=== PATIENT | male | born 1945 | race Caucasian/White ===

== ENCOUNTER → 2017-10-28 | Outpatient (CLI) | payer OTHER ==
--- NOTE | 2017-10-28 10:34 | RADRPT ---
EXAM DATE/TIME: 10/28/2017 00:00 [place] COMPARISON: No previous studies available for comparison. INDICATIONS : Dysphagia with liquids and solids for at least 6 to 8 months FLUORO TIME: 1.4 minutes IMAGE COUNT: 0 CONTRAST: Dose as prescribed by speech pathologist. MEDICAL HISTORY : None. SURGICAL HISTORY : None. ENCOUNTER: Initial ACUITY: 7 - 11 months PAIN SCORE: 0/10 LOCATION: Bilateral esophagus FINDINGS: A modified barium swallow was performed with speech pathology. Patient was given a variety of liquids to swallow. For a full detailed report, see report by the speech pathologist. CONCLUSION: No episodes of aspiration observed. Brandon Keenan MD on October 28, 2017 at 10:32 Board Certified Radiologist. This report was verified electronically.
== END ==
LOC: HRAD 09:53
PROVIDERS: ATTEND Specialist
DX: R13.10 Dysphagia, unspecified (principal)
CPT/HCPCS: 74230; 92611; G8996; G8997; G8998

== ENCOUNTER 2018-05-27 09:28 | Inpatient (IN) ==
[2018-05-27] MEDS ORDERED: Sodium Chlor 0.9% Inj 500 ML IV.CONT ONE (10:30)
[2018-05-27] MEDS ORDERED: Chlorhexidine 4% Topical 120 APPLIC/120 ML Bottle TOPICAL SCH (10:30)
[2018-05-27] MEDS ORDERED: Metoprolol Tartrate 25 MG Tablet PO ONE (10:30)
[2018-05-27] MEDS ORDERED: Vancomycin Inj 1,000 MG in Sodium Chlor 0.9% Inj 250 ML IV.SIG SCH (11:00)
[2018-05-27] MEDS ORDERED: ceFAZolin 2 GM Premix Inj 2 GM/50 ML PIGGYBACK IV.SIG SCH (11:00)
[2018-05-27] MEDS ORDERED: TRANEXAMIC ACID IV.SIG SCH (11:00)
[2018-05-27] MEDS ORDERED: SODIUM CHLOR 0.9% IV.SIG SCH (11:00)
[2018-05-27] MEDS ORDERED: Sodium Chlor 0.9% Inj 60 ML, Bupivacaine Liposo PF 1.3% Inj 20 ML, Bupivacaine/Epi PF 0... P-ARTICULR SCH ×3 (11:00)
[2018-05-27] MEDS ORDERED: Temazepam 15 MG Capsule PO PRN (16:45)
[2018-05-27] MEDS ORDERED: Bisacodyl 10 MG Supp RECTAL PRN (16:45)
[2018-05-27] MEDS ORDERED: Post-op Orders (for Pharmacy) OTHER STA (16:45)
[2018-05-27] MEDS ORDERED: oxyCODONE/Acetaminophen 10/325 Tablet PO PRN (16:45)
--- NOTE | 2018-05-27 16:51 | P.OP ---
- Preoperative Diagnosis (1) Osteoarthritis of right hip - Postoperative Diagnosis (1) Osteoarthritis of right hip Date of procedure: 05/27/18 Procedure: Right total hip replacement, direct anterior exposure Anesthesia: GETA Surgeon: Maikel Gomez MD [employer] Teacher: Rhea Barnes PA-C Operation and Findings: EBL: 600 cc INDICATION: This patient is a 73-year-old male with severe bilateral hip pain related to extensive arthritis of both hips. The right is worse than the left. He has had extensive conservative care documented in the attached records. He has failed conservative management and now presents for surgical treatment. NOTE: Rhea Barnes PA-C was present for the entire surgical procedure as my first front ventilator. In my medical opinion her skill and care was necessary for the proper management of this patient. COMPONENTS: COMPANY: [employer] CUP: [place], 60 mm, 100 series STEM: [place], size 14, high offset, hydroxyapatite-coated HEAD: Metal, 36 mm, +5, 12/14 taper LINER: Altrex, 36 mm, neutral PROCEDURE: This patient was brought to the operating room and anesthetized in the supine position. The patient was positioned on the Everest table with the operative leg extended and the contralateral leg held position. The hip and leg was scrubbed with alcohol followed by Hibiclens followed by ChloraPrep and draped sterilely in the clean air suite. Preoperative fluoroscopic images were utilized. A templating x-ray was obtained and printed to be used during the case. A timeout was done and antibiotics were given within a routine time window. A 4 inch incision was made starting 2 cm distal and 2 cm lateral to the anterior superior iliac spine. The tensor fascia eber fascia was identified and opened longitudinally in line with the incision. Deep retraction allowed good visualization in the interval between the tensor fascia eber and the rectus and this was opened further. The posterior fascia was opened. Crossing vessels were coagulated appropriately. The anterior aspect of the hip capsule was identified. Retractors were placed above and below the capsule. The capsule was opened longitudinally. Stay sutures were utilized creating flaps for the anterior capsule. The femoral neck was cut at the right location and completed with an oscillating saw. The head and neck was removed and taken to the back table. The leg was externally rotated 60 degrees and traction placed on the extremity. The labrum was excised. A portion of the capsule was excised. Visibility was excellent. Retractors were positioned. Starting 6 mm from the final size reamer, we began reaming up to 1 mm from the anticipated size. This was visualized under fluoroscopy. A trial cup was positioned. This also was visualized under fluoroscopy and minor adjustments were made. The final preparation with a 60 reamer was utilized. The final cup was positioned in approximately 40 degrees of abduction and 20 degrees of forward flexion. This is visualized under fluoroscopy and was seated into the final position. Position was very satisfactory. A single hole eliminator was positioned followed by the plastic liner. The final solution was excellent. Traction was let off. The leg was brought into neutral rotation. A lifting took was positioned underneath the greater trochanter and proximal femur. The leg was maximally externally rotated and the foot drop to the floor across midline. Retractors were positioned. A box osteotome was used to gain entrance into the top of the femur. The canal was probed with a finder to ensure that we are within the canal. Successive broaching up to the final stem size was accomplished. Trial reduction showed excellent balancing. Adjustments were made. The wound was irrigated copiously and the canal irrigated. The final stem was inserted in proper orientation. Trial again was trialed and the final head side was impacted. The hip was reduced and with 60 degrees of external rotation the leg to be dropped to the floor without evidence of anterior subluxation. Intraoperative x-rays were obtained. Local anesthesia was utilized for a field block including posterior capsule, inferior capsule, cephalad capsule, region of the greater trochanter, tensor fascia eber and subcutaneous tissue. The anterior capsule was repaired with interrupted #2 Tycron sutures. The fascia was run with 0 PDS on a loop. Subcutaneous tissue was approximated 2-0 Vicryl suture and skin with running intradermal 3-0 Vicryl followed by benzoin and Steri-Strips. A sterile dressing was applied. The patient was awakened and taken to the recovery room in satisfactory condition FINDINGS: There was satisfactory fixation. Bone quality was excellent. This leg was short by several millimeters. Leg length was equalized. There was no complication appreciated.
--- NOTE | 2018-05-27 16:52 | XR ---
EXAM DATE: 05/27/2018 4:43 PM EST AGE/SEX: 73 years / Male INDICATIONS: Right anterior hip replacement. CLINICAL DATA: This is the patient's initial encounter. Patient reports that signs and symptoms have been present for 1 day and indicates a pain score of Nonresponsive. MEDICAL/SURGICAL HISTORY: Non-responsive. Non-responsive. COMPARISON: No prior exams available for comparison. FINDINGS: Right total hip arthroplasty present. Hardware is intact. Alignment is anatomic. CONCLUSION: Satisfactory appearance of right BENJAMIN Electronically signed by: Peter Guan MD 05/27/2018 4:51 PM EST
--- NOTE | 2018-05-27 16:56 | P.DCO ---
- Physical Therapy Physical Therapy: Gait training (3 times per week for 2 weeks) Hip: Total hip Right Lower Extremity Weight Bearing: Weight bearing as tolerated - Nursing RN days per week: 3 x week(s): 1 - Certification Need for Home Health services: I have seen patient Kirill Beyer on 05/27/18. My clinical findings support the need for the requested home health care services because: Need for Home Health Services: High risk of falls Homebound Certification: I certify that my clinical findings support that this patient is homebound because: Homebound Certification: Unsteady gait/balance
[2018-05-27] MEDS ORDERED: *HYDROmorphone PF Inj 1 MG/ML Ampul PERIprocedural Use ONLY ONE ×5 (17:11→18:10)
[2018-05-27] MEDS ORDERED: fentaNYL Citrate Inj 100 MCG/2 ML Ampul ONE (17:24)
[2018-05-27] MEDS ORDERED: HYDROmorphone PF Inj 1 MG/ML Ampul IV.PUSH PRN (18:20)
[2018-05-27] MEDS: Morphine Inj 4 MG/ML Vial IV.PUSH PRN (21:25)
[2018-05-27] MEDS: Senna/Docusate Sodium 8.6/50 MG Tablet PO SCH (21:27)
[2018-05-27] MEDS: Multivitamin/Minerals Therapeutic Tablet PO SCH (21:27)
[2018-05-27] MEDS: ceFAZolin 1 GM Premix Inj 1 GM/50 ML FROZ.PIGGY IV.SIG SCH (21:27)
[2018-05-27] MEDS: Docusate Sodium 100 MG Capsule PO SCH (21:27)
[2018-05-27] MEDS: traZODone 100 MG Tablet PO SCH (21:27)
[2018-05-27] MEDS: oxyCODONE/Acetaminophen 10/325 Tablet PO PRN (23:14)
[2018-05-28] MEDS: ceFAZolin 1 GM Premix Inj 1 GM/50 ML FROZ.PIGGY IV.SIG SCH ×2 (02:27→08:23)
[2018-05-28] MEDS: Morphine Inj 4 MG/ML Vial IV.PUSH PRN ×3 (02:35→21:47)
[2018-05-28 06:55] LABS: Hemoglobin 9.4 gm/dL (13.0-17.0)
[2018-05-28] MEDS: Docusate Sodium 100 MG Capsule PO SCH ×2 (08:22→21:50)
[2018-05-28] MEDS: Senna/Docusate Sodium 8.6/50 MG Tablet PO SCH ×2 (08:23→21:50)
[2018-05-28] MEDS: Multivitamin/Minerals Therapeutic Tablet PO SCH ×2 (08:23→21:50)
[2018-05-28] MEDS: oxyCODONE/Acetaminophen 10/325 Tablet PO PRN ×3 (12:14→23:11)
--- NOTE | 2018-05-28 17:07 | P.DS ---
<Maikel Gomez - Last Filed: 05/29/18 09:40> Date of admission: 05/27/18 09:28 Primary care physician: Antonette Patterson Brief History from admission: This patient is a 73-year-old male with severe arthritis of the right hip. He is on chronic pain medications for a separate condition. He has had extensive conservative care. He now presents for surgical treatment. DS: Diagnosis - Discharge Diagnosis (1) Osteoarthritis of right hip Status: Acute DS: Medications - Discharge Medications Prescriptions: oxycodone-acetaminophen 1 tab PO Q4H PRN #42 tab PRN Reason: Acute Pain DS: Summary Hospital Course: The patient was admitted electively. He was taken the operating room on the date of admission and had a right total hip replacement performed under a general anesthetic. He was transferred to the recovery room and then to the floor. On the first postoperative day he was ambulating with assistance using a walker. By the second postoperative day he was felt to be a candidate for discharge to home. No dressing change. Home health care. Weightbearing as tolerated. Walker and bedside commode. Aspirin for anticoagulation. Percocet in addition to his baseline medication for pain control - Time Spent with Patient Total time spent providing and/or coordinating discharge services: Less than 30 minutes Exam Vital signs: Vital Signs 05/28/18 12:00 05/28/18 16:00 05/28/18 20:00 Temperature 97.8 F 98 F 98.5 F Pulse Rate 79 77 91 H Respiratory Rate 18 18 16 Blood Pressure 111/58 L 111/56 L 124/57 L Pulse Oximetry 96 100 96 05/29/18 00:00 05/29/18 00:48 05/29/18 03:15 Temperature 99.2 F Pulse Rate 95 H Respiratory Rate 18 18 16 Blood Pressure 112/58 L Pulse Oximetry 96 05/29/18 04:00 05/29/18 05:10 05/29/18 05:28 Temperature 99.0 F Pulse Rate 86 Respiratory Rate 17 16 16 Blood Pressure 113/53 L Pulse Oximetry 96 05/29/18 08:15 Temperature 97.6 F Pulse Rate 87 Respiratory Rate 16 Blood Pressure 93/54 L Pulse Oximetry 92 L Intake & Output 05/28/18 05/29/18 05/29/18 18:59 06:59 18:59 Intake Total 650 / 650 0 / 0 Output Total 650 / 650 Balance 650 / 650 -650 / -650 Weight 79.6 kg Intake: IV 650 / 650 0 / 0 LR 1000 mL Inj 1,000 ML @ 80 600 / 600 mls/hr IV.CONT .[id number] [facility] Rx# :[id number] Ancef 1 GM Premix Inj 1 gm In 50 / 50 50 ml @ 100 mls/hr IV.SIG Q6H [facility] Rx#:[id number] Output: Urine 650 / 650 Narrative: Incision is dry. Mild swelling. Normal alignment. Leg lengths equal. Neurologic examination normal. No calf tenderness Results Labs on day of discharge: Labs from last 24 hours 05/29/18 06:17 Hgb 8.4 L Hct 24.9 L - Impressions ITS Impressions Hip X-Ray 05/27/18 00:00 CONCLUSION: Satisfactory appearance of right BENJAMIN <Irma Valente - Last Filed: 05/29/18 21:33> Date of admission: 05/27/18 09:28 Primary care physician: Antonette Patterson Attending physician on discharge: Maikel Gomez Anticipated date of discharge: 05/29/18 DS: Diagnosis - Discharge Diagnosis (1) Osteoarthritis of right hip Status: Acute DS: Summary - Time Spent with Patient Total time spent providing and/or coordinating discharge services: Greater than 30 minutes - Quality: VTE Deep Vein Thrombosis/Pulmonary Embolism Present on Admission: No Exam Vital signs: Vital Signs 05/27/18 17:11 05/27/18 17:15 05/27/18 17:30 Temperature 98.2 F Pulse Rate 88 85 87 Respiratory Rate 20 25 H 26 H Blood Pressure 101/61 111/63 103/57 L Pulse Oximetry 97 98 100 05/27/18 17:45 05/27/18 18:00 05/27/18 19:25 Temperature 98.2 F 97.5 F L Pulse Rate 82 82 85 Respiratory Rate 19 14 16 Blood Pressure 108/62 105/60 109/63 Pulse Oximetry 98 97 99 05/27/18 23:30 05/28/18 03:43 05/28/18 08:00 Temperature 97.3 F L 98 F 97.1 F L Pulse Rate 98 H 85 77 Respiratory Rate 19 16 18 Blood Pressure 90/52 L 94/55 L 107/53 L Pulse Oximetry 96 96 98 05/28/18 12:00 Temperature 97.8 F Pulse Rate 79 Respiratory Rate 18 Blood Pressure 111/58 L Pulse Oximetry 96 Intake & Output 05/27/18 05/28/18 05/28/18 18:59 06:59 18:59 Intake Total 3907.47 / 3907.47 700 / 700 650 / 650 Output Total 600 / 600 650 / 650 Balance 3307.47 / 3307.47 50 / 50 650 / 650 Weight 74.7 kg 79.8 kg Intake: IV 1407.47 / 1407.47 100 / 100 650 / 650 LR 1000 mL Inj 1,000 ML @ 80 1000 / 1000 600 / 600 mls/hr IV.CONT .[id number] [facility] Rx# :[id number] Cyklokapron Inj 747 MG In NS 107.47 / 107.47 Inj 100 ML @ 200 mls/hr IV.SIG ONCE [facility] Rx#:[id number] Vancomycin Inj 1,000 MG In NS 250 / 250 Inj 250 ML @ 250 mls/hr IV.SIG [facility] Rx#:[id number] Ancef 1 GM Premix Inj 1 gm In 100 / 100 50 / 50 50 ml @ 100 mls/hr IV.SIG Q6H [facility] Rx#:[id number] Ancef 2 GM Premix Inj 2 gm In 50 / 50 50 ml @ 100 mls/hr IV.SIG [facility] Rx#:[id number] Oral 600 / 600 Anesthesia Amount 2500 / 2500 Output: Urine 650 / 650 Estimated Blood Loss 600 / 600 Other: Weight On Admission 74.7 kg Results Procedures completed during hospitalization: Right total hip arthroplasty, anterior Labs on day of discharge: Labs from last 24 hours 05/28/18 05:37 Hgb 9.4 L Hct 28.0 L - Impressions ITS Impressions Hip X-Ray 05/27/18 00:00 CONCLUSION: Satisfactory appearance of right BENJAMIN Discharge Plan - Discharge Order Discharge Orders: Discharge Order (Routine); Ordered 05/29/18 Ordered By: Maikel Gomez - Physicians Team Primary Care Provider: Antonette Patterson Attending Provider: Maikel Gomez Other Providers: [facility] ; [employer] - Rxs /Orders / Referrals /Forms Prescriptions: New oxycodone-acetaminophen 10-325 mg Tablet 1 tab PO Q4H PRN (Reason: Acute Pain) Qty: 42 RF: 0 Continue apixaban [Eliquis] 2.5 mg Tablet 2.5 mg PO BID aspirin [Aspirin Low Dose] 81 mg Tablet,Delayed Release (Dr/Ec) 81 mg PO DAILY docusate sodium [Stool Softener] 100 mg Tablet 100 mg PO BID folic acid 1 mg Tablet 1 mg PO DAILY oxycodone-acetaminophen [Percocet] 10-325 mg Tablet 1 tab PO Q4H PRN (Reason: Pain) tizanidine 4 mg Capsule 4 mg PO TID PRN (Reason: Spasms) trazodone 100 mg Tablet 100 mg PO HS Ambulatory Orders / Order Sets / DME: Adjustable Commode 3-in-1 (1 each) (Routine) Location: Determined by Patient Ordered By: Maikel Gomez Walker With Front Wheels (1 each) (Routine) Location: Determined by Patient Ordered By: Maikel Gomez Referrals: [facility] [Outside] - See Instructions Antonette Patterson MD [Primary Care Provider] - See Instructions - Discharge Instructions Patient Printed Instructions: Oxycodone/Acetaminophen (By mouth), Total Hip Replacement (DC) - Post Discharge Care Plan Care Plan Goals: Discharge Care Plan Goals for RIGHT Total Hip Replacement You had a hip replacement surgery. This means your natural hip was replaced with an artificial joint (prosthesis). You may be recovering at home or in a rehabilitation facility. Either way, you must take care of your new hip. Here are some goals to help you heal well. Directions to Meet your Goals: 1. Activity & Exercises: * Take pain medicine as directed by your doctor. * Dont drive until your doctor says its OK. And never drive while taking opioid pain medicine. * Wear the support stockings you were given in the hospital as directed by your surgeon. * Dont sit for more than 30 to 45 minutes at one time. * Dont lean forward while sitting. * Dont cross your legs. * Keep your feet flat on the floor. Dont turn your foot or leg inward. This stresses your hip joint. * Use an elevated toilet seat for 6 weeks after surgery. * Nap if you are tired, but dont stay in bed all day. * Sit on a firm cushion when you ride in a car and avoid sitting too low. Try not to bend your hip too much when getting in and out of the car. 2. Prevent Falls/Injury: * Follow your doctors orders regarding how much weight to put on the affected leg. * Dont bend at the hip when you bend over. Don't bend at the waist to put on socks and shoes. And avoid picking up items from the floor. * Use a cane, crutches, a walker, or handrails until your balance, flexibility, and strength improve. And remember to ask for help from others when you need it. * Free up your hands so that you can use them to keep balance. Use a elissa pack , apron, or pockets to carry things. * Arrange your household to keep the items you need handy. Keep everything else out of the way. * Remove items that may cause you to fall, such as throw rugs and electrical cords. * Use nonslip bath mats, grab bars, an elevated toilet seat, and a shower chair in your bathroom * Sit on a shower stool or chair when you shower to keep from falling. 3. Precautions: * Prevent infection. Any infection will need to be treated immediately. Call your doctor right away if you think you might have an infection. * Tell your dentist that you have an artificial joint and take antibiotics as prescribed before any dental work. * Tell all your healthcare providers about your artificial joint before any medical procedure. * Maintain a healthy weight. Get help to lose any extra pounds. Added body weight puts stress on the joints. 4. Incision Care: * Prevent infection by washing your hands often. If an infection occurs, it will need to be treated right away. * Call your doctor right away if you think you may have an infection. Symptoms include a fever or an incision that leaks white, green, or yellow fluid. * Don't soak your incision in water until your doctor says its OK. This means no hot tubs, bathtubs, or swimming pools. * Follow your doctor's instructions for changing the dressing. You can begin to shower postop day 5 BUT the incision must be kept sealed and dry. If the dressing is compromised and becomes wet you must begin to do daily dressing changes. * Dont rub the incision, or apply creams or lotions to it. * If you notice any redness or drainage around the bandage site, contact your surgeon's office immediately. 5. Follow-Up: Do Not miss your follow-up appointment. Keep up with all your appointments and yearly check ups When to call your doctor: Call your doctor right away if you have: Hip pain gets worse Pain or swelling in your calf or leg not related to your incision Tenderness or redness in your calf Fever of 100.4F (38C) or higher, or as directed by your healthcare provider Shaking chills Swelling or redness at the incision site gets worse Fluid draining from the incision Call 911: Call 911 right away if you have: Chest pain Shortness of breath Any pain or tenderness in your calf
--- NOTE | 2018-05-28 17:07 | P.PNOP ---
Subjective Interval history: Doing 'alright' this morning. He notes moderate pain about his right hip. He is more concerned because the bed is bothering his low back. No new leg pain. No complaints otherwise. No CP or SOB. Physical Exam Vital signs: Vital Signs 05/27/18 17:11 05/27/18 17:15 05/27/18 17:30 Temperature 98.2 F Pulse Rate 88 85 87 Respiratory Rate 20 25 H 26 H Blood Pressure 101/61 111/63 103/57 L Pulse Oximetry 97 98 100 05/27/18 17:45 05/27/18 18:00 05/27/18 19:25 Temperature 98.2 F 97.5 F L Pulse Rate 82 82 85 Respiratory Rate 19 14 16 Blood Pressure 108/62 105/60 109/63 Pulse Oximetry 98 97 99 05/27/18 23:30 05/28/18 03:43 05/28/18 08:00 Temperature 97.3 F L 98 F 97.1 F L Pulse Rate 98 H 85 77 Respiratory Rate 19 16 18 Blood Pressure 90/52 L 94/55 L 107/53 L Pulse Oximetry 96 96 98 05/28/18 12:00 Temperature 97.8 F Pulse Rate 79 Respiratory Rate 18 Blood Pressure 111/58 L Pulse Oximetry 96 Intake & Output 05/27/18 05/28/18 05/28/18 18:59 06:59 18:59 Intake Total 3907.47 / 3907.47 700 / 700 650 / 650 Output Total 600 / 600 650 / 650 Balance 3307.47 / 3307.47 50 / 50 650 / 650 Weight 74.7 kg 79.8 kg Intake: IV 1407.47 / 1407.47 100 / 100 650 / 650 LR 1000 mL Inj 1,000 ML @ 80 1000 / 1000 600 / 600 mls/hr IV.CONT .[id number] [facility] Rx# :[id number] Cyklokapron Inj 747 MG In NS 107.47 / 107.47 Inj 100 ML @ 200 mls/hr IV.SIG ONCE [facility] Rx#:[id number] Vancomycin Inj 1,000 MG In NS 250 / 250 Inj 250 ML @ 250 mls/hr IV.SIG [facility] Rx#:[id number] Ancef 1 GM Premix Inj 1 gm In 100 / 100 50 / 50 50 ml @ 100 mls/hr IV.SIG Q6H [facility] Rx#:[id number] Ancef 2 GM Premix Inj 2 gm In 50 / 50 50 ml @ 100 mls/hr IV.SIG [facility] Rx#:[id number] Oral 600 / 600 Anesthesia Amount 2500 / 2500 Output: Urine 650 / 650 Estimated Blood Loss 600 / 600 Other: Weight On Admission 74.7 kg Narrative: Laying in bed NAD RLE Hip dressing c/d/i, minimal SS drainage, mild warmth, no erythema +motor at, +sens, +nvi Neg homans - Constitutional no acute distress Results - Labs CBC & Chem 7: 05/28/18 05:37 Laboratory Results - last 24 hr 05/28/18 05:37 Hgb 9.4 L Hct 28.0 L - Procedures Right total hip arthroplasty, anterior Assessment and Plan - Ortho Post Op Day # 1 - Assessment and Plan pod#1 s/p R BENJAMIN, anterior Pain well controlled. No events last night. Ortho stable. Consider discharge home today w [facility] if he does well with PT. PO pain meds as needed. PT - WBAT RLE. Progressive ROM. ASA 81mg Hold dressing changes unless saturated. D/C planning, likely [facility] today or tomorrow.
[2018-05-28] MEDS: traZODone 100 MG Tablet PO SCH (21:50)
[2018-05-29] MEDS: Morphine Inj 4 MG/ML Vial IV.PUSH PRN ×2 (01:26→04:38)
[2018-05-29] MEDS: oxyCODONE/Acetaminophen 10/325 Tablet PO PRN ×3 (02:45→12:34)
[2018-05-29 05:29] VITALS: RESP 16
[2018-05-29 06:44] LABS: Hematocrit 24.9 % (39.0-51.0); Hemoglobin 8.4 gm/dL (13.0-17.0)
--- NOTE | 2018-05-29 07:46 | P.PNOP ---
Subjective Interval history: No complaints. Pain controlled but still has some burning in the region of the incision. Was tired after physical therapy yesterday. Wants to go home Physical Exam Vital signs: Vital Signs 05/28/18 08:00 05/28/18 12:00 05/28/18 16:00 Temperature 97.1 F L 97.8 F 98 F Pulse Rate 77 79 77 Respiratory Rate 18 18 18 Blood Pressure 107/53 L 111/58 L 111/56 L Pulse Oximetry 98 96 100 05/28/18 20:00 05/29/18 00:00 05/29/18 00:48 Temperature 98.5 F 99.2 F Pulse Rate 91 H 95 H Respiratory Rate 16 18 18 Blood Pressure 124/57 L 112/58 L Pulse Oximetry 96 96 05/29/18 03:15 05/29/18 04:00 05/29/18 05:10 Temperature 99.0 F Pulse Rate 86 Respiratory Rate 16 17 16 Blood Pressure 113/53 L Pulse Oximetry 96 05/29/18 05:28 Temperature Pulse Rate Respiratory Rate 16 Blood Pressure Pulse Oximetry Intake & Output 05/28/18 05/29/18 05/29/18 18:59 06:59 18:59 Intake Total 650 / 650 0 / 0 Output Total 650 / 650 Balance 650 / 650 -650 / -650 Weight 79.6 kg Intake: IV 650 / 650 0 / 0 LR 1000 mL Inj 1,000 ML @ 80 600 / 600 mls/hr IV.CONT .[id number] [facility] Rx# :[id number] Ancef 1 GM Premix Inj 1 gm In 50 / 50 50 ml @ 100 mls/hr IV.SIG Q6H [facility] Rx#:[id number] Output: Urine 650 / 650 Narrative: Laying in bed NAD RLE Hip dressing c/d/i, minimal SS drainage, mild warmth, no erythema +motor at, +sens, +nvi Neg homans Results - Labs CBC & Chem 7: 05/29/18 06:17 Laboratory Results - last 24 hr 05/29/18 06:17 Hgb 8.4 L Hct 24.9 L - Procedures Right total hip arthroplasty, anterior Assessment and Plan - Assessment and Plan pod#2 s/p R BENJAMIN, anterior Percocet for pain. Patient has baseline 10 mg 5 times per day. A separate prescription is written which he will need to have approved by pain management physician. No dressing change. Weightbearing as tolerated. Discharge to home. Home health care. Walker and bedside commode. Orthopedically stable
[2018-05-29] MEDS: Multivitamin/Minerals Therapeutic Tablet PO SCH (08:20)
[2018-05-29] MEDS: Docusate Sodium 100 MG Capsule PO SCH (08:20)
[2018-05-29] MEDS: Senna/Docusate Sodium 8.6/50 MG Tablet PO SCH (08:20)
[2018-05-29 13:48] VITALS: BP 117/59; PULSE 95; TEMP 97.7; O2SAT 96
== END 2018-05-29 14:12 | disposition home health service (06) ==
LOC: HSDI 09:28 → N06 18:23
PROVIDERS: ADMIT Orthopaedic Surgery Orthopaedic Surgery of the Spine; ATTEND Orthopaedic Surgery Orthopaedic Surgery of the Spine